=== PATIENT | female | born 2005 | race Caucasian/White ===

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

== ENCOUNTER 2025-01-12 00:11 | Outpatient (CLI) | payer MEDICAID, SELFPAY ==
--- NOTE | 2025-01-12 07:30 | DI.US_ITS ---
Exam(s) US OB 2-3 TRIMESTER EXAM: US OB 2-3 TRIMESTER CLINICAL HISTORY: 19 WK SURVEY,Z34.90. TECHNIQUE: Transabdominal obstetrical ultrasound performed. COMPARISON: US POCUS EXAM from 11/02/2024 FINDINGS: Number of fetuses: 1 position: CEPHALIC heart rate: 155bpm Placental location: There is a grade 1 fundal placenta. The placental tip is 4.5 cm from the interna l os. No evidence of previa. Amniotic fluid index: Amount of fluid is within normal limits. ANATOMICAL SURVEY: Within normal limits. BIOMETRIC DATA: BPD: 3.87cm, 17weeks 5days HC: 15.13cm, 18weeks 1day AC: 12.11cm, 17weeks 6days FL: 2.57cm, 17weeks 6days Cisterna magna: 4.1mm Cerebellum: 1.7cm Lateral ventricle: 0.6 cm EFW: 211.61g, 0.47lb, 26.9% Composite Age: 17weeks 6days ARNULFO: 06/16/2025 Heart Rate: 155bpm ANATOMICAL SURVEY: Four-chambered heart: Unremarkable. RVOT: Unremarkable. LVOT: Unremarkable. Left-sided stomach: Unremarkable. urinary bladder: Unremarkable. Bilateral kidneys: Unremarkable. Three-vessel cord: Unremarkable. Cord insertion: Unremarkable. Posterior fossa: Unremarkable. ventricles: Unremarkable. nose/lips: Unremarkable. Palate: Unremarkable. spine: Unremarkable. Two arms and two legs: Unremarkable. IMPRESSION: 1. Single live intrauterine gestation as above. 2. Normal anatomic survey. DATA REPOSITORY:
== END 2025-01-12 00:31 ==
LOC: DI 00:11
PROVIDERS: PCP Nurse Practitioner Family; Visit Provider Advanced Practice Midwife
DX: Z34.91 Encounter for supervision of normal pregnancy, unspecified, first trimester (principal); Z3A.19 19 weeks gestation of pregnancy
CPT/HCPCS: 76805

== ENCOUNTER 2025-01-30 00:45 | Outpatient (CLI) | payer MEDICAID, SELFPAY ==
--- NOTE | 2025-01-30 14:30 | DI.US_ITS ---
APPROVED REPORT EXAM: Comprehensive 2D, Doppler, and color-flow Echocardiogram Patient Location: Out-Patient Instrument Fitter: George Hoover RDCS (AE) Indications: Heart murmur during Other Information Study Quality: Excellent Conclusion Normal left ventricular wall thickness and chamber size. Ejection fraction is 65%. Wall motion is n ormal Normal right ventricular size and function Both atria are normal in size There is no structural or hemodynamically significant valvular disease Estimated right ventricular systolic pressure is 30 mmHg Wall motion Left Ventricle The left ventricle is normal size. Left ventricular systolic function is normal. The left ventricular ejection fraction is within the normal range. There is normal left ventricular wall thickness. There is normal LV segmental wall motion. The left ventricular diastolic function is normal. There is no v entricular septal defect visualized. LVEF is 65%. Right Ventricle The right ventricle is normal size. The right ventricular systolic function is normal. Atria The left atrium size is normal. The right atrium size is normal. The interatrial septum is intact wit h no evidence for an atrial septal defect. Aortic Valve The aortic valve is normal in structure. Aortic valve is trileaflet. There is no aortic valvular sten osis. No aortic regurgitation is present. Mitral Valve The mitral valve is normal in structure. No evidence of mitral valve stenosis. Trace mitral regurgita tion. Tricuspid Valve The tricuspid valve is normal in structure. There is no tricuspid valve stenosis. Trace tricuspid reg urgitation. The RVSP is 30 mmHg. Pulmonic Valve The pulmonary valve is normal in structure. There is no pulmonic valvular stenosis. There is no pulmo tayo valvular regurgitation. Great Vessels The aortic root is normal in size. The ascending aorta is normal in size. Aortic arch is normal in ca liber. IVC is normal in size and collapses >50% with inspiration. Pericardium There is no pericardial effusion. 2D Dimensions IVSD d PLAX 0.83 cm F: 0.6-1.0 Ao Root d 2.29 cm F: 2.7 - 3.3 LVPW d PLAX 0.85 cm F: 0.6 - 1.0 Ao Asc Diam d 2.33 cm F: 2.3 - 3.1 LVID d PLAX 4.81 cm F: 3.8 - 5.2 LVDs 3.01 cm F: 2.2 - 3.5 LV EF Teichholz 67.5 % FS 37.51 % LV EDV (Teich) 108.0 mL LV ESV (Teich) 35.1 mL Stroke Vol Index (Teich) 43.36 M-Mode TAPSE 2.72 cm (M/F) >1.7 Auto EF LV EDV A4C 106.8 mL LV EDV A2C 135.5 mL LV EDV BP 120.7 mL LV ESV A4C 39.0 mL LV ESV A2C 41.4 mL LV ESV BP 40.4 mL LVEF(%) A4C 63.5 % LVEF(%) A2C 69.5 % LVEF(%) BP 66.6 % LV SV A4C 67.9 ml LV SV A2C 94.2 ml LV SV BP 80.4 ml LV CO A4C 5.8 L/min LV CO A2C 7.1 L/min LV CO BP 6.5 L/min HR A4C 85.92 BPM HR A2C 75.16 BPM LV EDV Index (BP) LA Volume LA Length A4C 4.0 cm LA Length A2C 3.6 cm LA Area A4C s 8.28 cm2 LA Area A2C s 8.67 cm2 LA Vol A4C A-L 14.68 mL LA Vol A2C A-L 17.54 mL LA Vol Biplane A-L 16.7 mL LA Vol/BSA A4C A-L LA Vol/BSA A2C A-L LA Vol/BSA BP A-L 10.0 mL/m2 LA Vol A4C MOD 13.3 mL LA Vol A2C MOD 16.6 mL LA Vol BP MOD 15.4 mL RA Volume RA Area A4C 6.9 cm2 RA ESV A4C (A-L) 13.3mL RA Vol/BSA A4C A-L RA Length A4C 3.0 cm RA ESV A4C (MOD) 13.2mL LV Diastology MV E' medial 0.154 (>0.07 m/s) MV E Vmax 1.07 (0.4-1.3 m/s) MV E/E' MED 6.92 (<14) MV A Vmax 0.75 (0.4-1.3 m/s) MV E' lateral 0.204 (>0.1 m/s) E/A Ratio 1.4 MV E/E' LAT 5.24 (<14) MV E' Average 0.179 m/s MV E/E'(average) 5.96 Aortic Valve AoV Vmax 1.93 m/s LVOT Vmax 1.54 m/s AoV Peak Grad 15.0 mmHg LVOT Peak Grad 9.5 mmHg AoV Area (Vmax) 1.65 cm2 LVOT VTI 0.274 m AoV VTI 0.349 m LVOT Mean Grad 5.0 mmHg AoV Mean David. 1.36 m/s LVOT SV 56.75 mL AoV Mean Grad 8.5 mmHg LVOT Diam s 1.60 cm AoV Area (VTI) 1.62 cm2 AV Regurg Peak Gr. 14.97 mmHg Velocity Ratio 0.80 Mitral Valve MV DT 180 (160-240 msec) Pulmonary Valve PV Vmax 1.26 (0.5-1.5 m/s) RVOT Vmax 0.98 m/s PV Peak Grad 6.4 mmHg RVOT Peak Gr. 3.8 mmHg PV Mean David 0.93 m/s RVOT VTI 0.192 m PV Mean Grad 3.8 mmHg RVOT Mean Gr. 2.2 mmHg Tricuspid Valve RA Pressure 3.00 mmHg TR Vmax 2.60 m/s TV S' 0.17 m/s TR Peak Grad 27.0 mmHg RVSP (TR) 30.0 mmHg
== END 2025-01-30 01:05 ==
PROVIDERS: PCP Nurse Practitioner Family; Visit Provider Advanced Practice Midwife
DX: O26.892 Other specified pregnancy related conditions, second trimester (principal); R01.1 Cardiac murmur, unspecified; Z3A.18 18 weeks gestation of pregnancy
CPT/HCPCS: 93306

== ENCOUNTER 2025-02-08 11:32 | Outpatient (CLI) | payer MEDICAID, SELFPAY ==
--- NOTE | 2025-02-08 11:30 | RT.EKG_ITS ---
APPROVED REPORT Exam: Resting ECG Reason for Exam: baseline for establishment of care Patient Location: O HR:78 bpm ECG Measurements Heart Rate 78 AXIS TX 116 P 10 QRSd 85 QRS 36 QT 349 T -2 QTc 398 Conclusion Sinus rhythm...normal P axis, V-rate 50- 99 Borderline short TX interval...TX int <120mS Borderline T abnormalities, inferior leads...T flat/neg, II III aVF Baseline wander in lead(s) V4
== END 2025-02-08 11:33 | disposition home or self-care (01) ==
LOC: DI.CARD 11:33
PROVIDERS: PCP Nurse Practitioner Family; Visit Provider Internal Medicine Cardiovascular Disease
DX: R01.1 Cardiac murmur, unspecified (principal); O26.899 Other specified pregnancy related conditions, unspecified trimester
CPT/HCPCS: 93010

== ENCOUNTER 2025-02-16 19:51 | Outpatient (CLI) | payer MEDICAID, SELFPAY ==
[2025-02-16 21:08] VITALS: BP 116/71; PULSE 125; RESP 16; TEMP 37.2; O2SAT 96
[2025-02-16 21:13] LABS: Bilirubin Negative (Negative); Blood Trace-intact (Negative); Clarity Cloudy (Clear); Glucose Negative (Negative); Ketones Negative (Negative); Leukocyte Esterase Moderate (Negative); Nitrite Positive (Negative); Urobilinogen 0.2 mg/dL (Up to 0.2)
[2025-02-16 21:26] LABS: Bacteria Moderate HPF (Negative); C & S Indicated? No/Sq. Contamination; Casts Negative LPF (Negative); Crystals Negative HPF (Negative); Epithelial Cells Moderate HPF (Negative); Mucus Negative (Negative); RBC 0-2 HPF (0-2); WBC >50 HPF (0-5)
--- NOTE | 2025-02-16 22:04 | PGE_ITS ---
Date of Service Date of service: 02/16/25 Time of Service: 22:05 Assessment and Plan Assessment and plan (1) Urinary tract infection: Status: Acute Assessment and plan: Macrobid 100 mg administered and pyridium for treatment. Macrobid 100 mg BID escribed to her pharmacy. Will consider IV treatment if symptoms persist. I will call Aiyana in the morning to see if she has seen an improvement in her symptoms or if fever occurs. Rest and fluids recommended. Note written to stay home from work tomorrow. (2) Right flank pain: Status: Acute Assessment and plan: will consider renal US Monday 02/19 if symptoms persist. Subjective Subjective Patient reports: voiding w/o difficulty and vomiting (earlier today) Interval history since last seen: Aiyana called this evening and reported right flank pain which worsened through the day today accompanied by chills. She has been taking Tylenol for pain with fair to moderate effect. She denies burning or urgency with urination. Urinalysis obtained upon arrival at the Center was pos for nitrites and trace blood with mod leukocytes and mod bacteria. Urine culture was ordered. specific gravity 1.020. Aiyana was treated early in her with macrobid for UTI. Test of cure was not obtained previously. Objective Last Vital Signs Temp 99.0 F 02/16/25 21:08 Pulse 125 H 02/16/25 21:08 Resp 16 02/16/25 21:08 BP 116/71 02/16/25 21:08 Pulse Ox 96 02/16/25 21:08 Laboratory Results - last 24 hr 02/16/25 20:59 Urine Color Yellow Urine Clarity Cloudy Urine pH 6.0 Ur Specific [place] 1.020 Urine Protein 30 H Urine Ketones Negative Urine Blood Trace-intact H Urine Nitrite Positive H Urine Bilirubin Negative Urine Urobilinogen 0.2 Ur Leukocyte Esterase Moderate H Urine RBC 0-2 Urine WBC >50 H Ur Epithelial Cells Moderate Urine Crystals Negative Urine Bacteria Moderate Urine Casts Negative Urine Mucus Negative Ur Culture Indicated? No/Sq. Contamination Urine Glucose Negative Reviewed Pertinent PMH: Yes Objective Narrative Objective Narrative: WBC 13.74. Signs of mild discomfort observed by Jazmin SAMPSON Time Spent with Patient Time Spent with Patient: <25 minutes Time was spent: obtaining and/or reviewing separately otained hiistory, ordering medications,tests, procedures, referring, communicating with other health farm or ranch animal caretaker and indepentently interpreting results
[2025-02-16] MEDS: MacroBID 100 MG CAP PO (22:10)
[2025-02-16] MEDS: Phenazopyridine 200 MG TAB PO (22:10)
[2025-02-16 22:12] LABS: Abs Immature Grans 0.08 10^3/uL (0.0-0.06); Absolute Basophil Count 0.04 10^3/uL (0.0-0.2); Absolute Lymphocyte Count 0.44 10^3/uL (1.2-3.4); Basophils % 0.3 %; HCT 31.3 % (36.0-46.0); HGB 10.7 g/dL (11.2-15.7); Immature Grans % 0.6 %; Lymphocytes % 3.2 %; MCH 31.6 pg (27.0-33.0); MCHC 34.2 % (32.0-36.0); MCV 92 fL (80-95); MPV 9.6 fL (8.0-11.0); Monocytes % 7.4 %; Neutrophils % 88.5 %; Platelet Count 321 10^3/uL (130-400); RBC 3.39 10^6/uL (3.93-5.22); RDW 12.6 % (11.7-14.6); RDW-SD 42.4 fL; WBC 13.74 10^3/uL (4.4-10.8)
[2025-02-16 22:13] LABS: Absolute Monocyte Count 1.02 10^3/uL (0.1-0.8); Absolute Neutrophil Count 12.16 10^3/uL (1.2-6.7)
== END 2025-02-16 22:17 ==
LOC: BCD 19:51 → OBS 20:59
PROVIDERS: PCP Nurse Practitioner Family; Visit Provider Advanced Practice Midwife
DX: N39.0 Urinary tract infection, site not specified (principal); R10.9 Unspecified abdominal pain; B96.29 Other Escherichia coli [E. coli] as the cause of diseases classified elsewhere
CPT/HCPCS: 87077; 81003; 81015; 85025; 87086; 87186

== ENCOUNTER 2025-02-17 21:11 | Observation (INO) | payer MEDICAID, SELFPAY ==
[2025-02-17] VITALS (14 sets, daily range): BP systolic 115–117; BP diastolic 61–62; PULSE 105–136; RESP 16; TEMP 36.7–37.6; O2SAT 99–100
--- NOTE | 2025-02-17 21:48 | HPE_ITS ---
Date of service: 02/17/25 Time of Service: 21:48 Assessment and Plan Assessment and plan (1) Right flank pain: Status: Acute Assessment and plan: Comfort measures including fan and heat or Ice to right flank PRN. Tylenol PRN. Will continue to assess. (2) Pyelonephritis affecting : Status: Acute Assessment and plan: Admitted to the Center for observation and IV antibiotic therapy. Aiyana reports rash as a child after taking amoxicillin. Her father is present with her and confirms that she had a full body rash which was called penicillin measles. Will treat with ceftriaxone 1 gm IV Q 24 hours. CBC, CMP drawn stat. Consult with Dr Swanson by phone re: patient's status and treatment plan. Lactate drawn per her recommendation. (3) History of febrile urinary tract infection: Status: Acute Assessment and plan: Tylenol PRN OB-HPI Labor/Delivery History of Present Illness Reason for Visit: OBSERVATION Chief Complaint: Other (pyelonephritis). ARNULFO Calculator Estimated Delivery Date Method Current WG Current Estimate 06/14/25 Ultrasound #1 23w 2d Other Estimates 06/05/25 LMP (Certain) 24w 4d Comments: Suzy was treated last night at the center for UTI with Macrobid. She has taken 3 doses of Macrobid 100 mg. Her symptoms improved this morning when I spoke to her on the phone but she called this evening when she developed flank pain and reported that she was 'burning up. She last took tylenol this morning. She is admitted for observation and IV antibiotic therapy. History of Present Expected Delivery Route/Plan - CNM FOB/boyfriend - Wilfred Sellers, age 58 (has a 30 yo daughter who has 2 kids age 13 & 8) Will want epidural (maybe early) Plans formula feeding after initial colostrum Specific Issues/Plan 1. 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 partner neg CF carrier 2. Hx heart murmur, heard at initial OB, Echo 01/30 WNL, Cardiology Consult 02/08__ 3. 5P screen+: vaping & MJ use, initial UDS +THC. Stopped MJ use (12/13/2024). 28 wk UDS ___, POSC ___ 4. 1st tri asymptomatic UTI, 11/17/24, tmt w. Macrobid. RAFIQ NV 4a. UTI Recurrence - treated with Macrobid x 14 days, TOC____ 4b. admitted to the center for pyelonephritis 02/17 5. Hx of insomnia trx with melatonin. 6. Chronic low back pain - referral to PT. 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 Will try home stretches and strength building exercises Insomnia (Acute) uses melatonin shift changes for work (works days and nights) Healthy adolescent (Acute) Medical History Anxiety Filled out on patient registration form, anxiety Urinary tract infection History filled out on patient registration form, UTI or kidney problems Family History Mother Age: 43 Asthma Alcohol abuse Depression Anxiety Sister Age: 18 No problems noted. Paternal Grandfather Hypertension Grandparent unknown side or gender history of hypertension Diabetes Grandparent unknown side or gender history of diabetes Heart disease Grandparent unknown side or gender history of heart disease. Alcohol abuse Social History Smoking/Tobacco Use Status: Never Second Hand Exposure: No Smoking risk assessment performed?: Yes Drug use: Occasionally Substance use type: marijuana Household members: family Education Level: other Details: Gap year , undecided for after that Pets and animals: Yes (2 cats) Pets and animals: cat(s) Seatbelt use: always Female Reproductive History Menstrual control method: none History History 2 1 Para 0 Hx # Term Pregnancies 0 Multiple births 0 Hx # Pregnancies 0 Ectopic pregnancies 0 AB induced 0 Hx Number of Living Children 0 AB spontaneous 0 Meds Allergies and Home Medications Allergies Allergy/AdvReac Type Severity Reaction Status Date / Time amoxicillin Allergy Hives Verified 02/09/25 14:24 Home Medications ?Medication ?Instructions ?Recorded ?Confirmed ?Type melatonin 5 mg tablet 5 mg PO HS PRN 11/14/19 02/09/25 History vits,calcium no.78-iron 1 tab PO DAILY #90 tabs 10/16/24 02/09/25 Rx fumarate-folic acid 29 mg-1 mg tablet cholecalciferol (vitamin D3) 50 50 mcg PO DAILY #90 caps 12/13/24 02/09/25 Rx mcg (2,000 unit) capsule nitrofurantoin 100 mg PO BID #13 caps 02/16/25 Rx monohydrate/macrocrystals 100 mg capsule (Macrobid) Exam Physical Exam Vital signs: Temp Pulse BP Pulse Ox 99.7 F H 134 H 115/62 99 02/17/25 21:38 02/17/25 21:41 02/17/25 21:40 02/17/25 21:41 Vital Signs Reviewed: Yes Notable Details: preliminary urine cullture shows gram neg rods. Constitutional Constitutional: no acute distress and cooperative Detailed Labor and Delivery Exam Vaca Score: Cervical Points Exam 0 1 2 3 Dilation Closed 1-2cm 3-4 cm 5-6cm Effacement 0-30% 40-50% 60-70% 80% Consistency Firm Medium Soft Station -3 -2 -1,0 +1,+2 Position Posterior Mid Anterior Monitor Mode: External Contraction Frequency(min): none Fetus A Heart Rate Baseline: 160 Monitor Accelerations: 10 X 10 Monitor Decelerations: None Categories: Category I HEENT Exam HEENT Exam: Normal Respiratory Exam Respiratory Exam: Normal Cardiovascular Exam Cardiovascular Exam: Normal Abdominal Exam Abdominal Exam: Abnormal (right flank pain pos. CVAT) Exam Exam: Not Done Extremities Exam Extremities Exam: Normal Skin Exam Skin Exam: Normal Psychiatric Exam Psychiatric Exam: Normal Risk Assessment Risk for Shoulder Dystocia Historical/Initial OB: NEGATIVE FOR: Pelvic Abnormality, Pre- BMI>30, Previous Shoulder Dystocia or Previous Macrosomia Risk for Pre-Eclampsia Daily Dose ASA Indicated: No Date Initiated/Initials: not indicated. JK Yes, if one or more: NEGATIVE FOR: Hx Pre-E/Gest HTN, Chronic HTN, Multiple Gestation, Pre-gestational DM, Renal Disease, Systemic Lupus or APA Syndrome Yes, if 2 or more: POSITIVE FOR: Nulliparity; NEGATIVE FOR: Age>= 35 yrs, >10yr btwn pregnancies, BMI>30, ethinicty, Mother/Sister w/ Pre-E or Previous IUGR Risk for Post- Hemorrhage Initial: NEGATIVE FOR: Multiple Gestation, Previous PPH, Known Clotting Deficiency, Grand Multiparity or Anticoagulation Risks Reviewed Risks Reviewed Upon Admission: Yes
[2025-02-17 22:04] LABS: Abs Immature Grans 0.11 10^3/uL (0.0-0.06); HCT 30.4 % (36.0-46.0); HGB 10.4 g/dL (11.2-15.7); Lactate 1.6 mmol/L (<or=2.0); MCH 31.8 pg (27.0-33.0); MCHC 34.2 % (32.0-36.0); MCV 93 fL (80-95); MPV 9.6 fL (8.0-11.0); Platelet Count 348 10^3/uL (130-400); RBC 3.27 10^6/uL (3.93-5.22); RDW 12.6 % (11.7-14.6); RDW-SD 43.3 fL; WBC 18.43 10^3/uL (4.4-10.8)
[2025-02-17] MEDS: Lactated Ringers 1,000 ML 125 ML IV (22:09)
[2025-02-17] MEDS: cefTRIAXone 1 GM/50 ML BAG IVPB (22:11)
[2025-02-17] MEDS: Acetaminophen 500 MG TAB 1000 MG PO (22:11)
[2025-02-17 22:16] LABS: Absolute Eosinophil Count 0.18 10^3/uL (0.0-0.7); Absolute Lymphocyte Count 0.37 10^3/uL (1.2-3.4); Absolute Monocyte Count 1.29 10^3/uL (0.1-0.8); Absolute Neutrophil Count 16.59 10^3/uL (1.2-6.7); Diff Comment Manual Differential; RBC Morphology Normal
[2025-02-17 22:22] LABS: ALT 16 U/L (14-59); AST 15 U/L (15-37); Albumin 2.6 g/dL (3.4-5.0); Alkaline Phosphatase 82 U/L (46-116); Anion Gap 14.3 mmol/L (3-11); BUN 5 mg/dL (7-18); Bilirubin, Total 0.4 mg/dL (0.2-1.0); CO2 20.7 mmol/L (21.0-32.0); CREATININE 0.7 mg/dL (0.55-1.02); Calcium 8.8 mg/dL (8.5-10.1); Chloride 102 mmol/L (98-107); Estimated GFR 127.69 (mL/min/1.73m2); Glucose 181 mg/dL (74-106); Sodium 137 mmol/L (136-145); Total Protein 6.5 g/dL (6.4-8.2)
[2025-02-17 22:32] LABS: Potassium 2.7 mmol/L (3.5-5.1)
[2025-02-17] MEDS: Lactated Ringers 500 ML IV (22:50)
[2025-02-17] MEDS: Normal Saline Flush 10 ML SYR IVP (23:11)
[2025-02-18] VITALS (22 sets, daily range): BP systolic 86–112; BP diastolic 41–66; PULSE 86–120; RESP 16–32; TEMP 36.4–37.9; O2SAT 91–100
[2025-02-18] MEDS: Acetaminophen 500 MG TAB 1000 MG PO ×3 (03:53→16:08)
[2025-02-18] MEDS: Lactated Ringers 1,000 ML 125 ML IV (03:54)
[2025-02-18 04:13] LABS: Lactate 0.8 mmol/L (<or=2.0)
[2025-02-18 04:34] LABS: ALT 15 U/L (14-59); AST 14 U/L (15-37); Albumin 2.5 g/dL (3.4-5.0); Alkaline Phosphatase 81 U/L (46-116); Anion Gap 9.9 mmol/L (3-11); BUN 4 mg/dL (7-18); Bilirubin, Total 0.4 mg/dL (0.2-1.0); CO2 26.1 mmol/L (21.0-32.0); CREATININE 0.6 mg/dL (0.55-1.02); Calcium 8.8 mg/dL (8.5-10.1); Chloride 104 mmol/L (98-107); Estimated GFR 132.52 (mL/min/1.73m2); Glucose 95 mg/dL (74-106); Sodium 140 mmol/L (136-145); Total Protein 6.4 g/dL (6.4-8.2)
[2025-02-18 04:48] LABS: Potassium 3.8 mmol/L (3.5-5.1)
--- NOTE | 2025-02-18 14:36 | PGE_ITS ---
Date of Service Date of service: 02/18/25 Time of Service: 14:36 Assessment and Plan Assessment and plan (1) Pyelonephritis affecting : Status: Acute Assessment and plan: Will continue IV antibiotics with rocephin 1 gm Q 24 hours IV. Saline lock. PO fluids encouraged. (2) Right flank pain: Status: Acute Assessment and plan: comfort measures. renal US ordered in the morning. Plan reviewed by telephone with Dr Swanson who agrees. Subjective Subjective Patient reports: no new complaints Interval history since last seen: Suzy feels well. She denies chills or fever symptoms. She reports that right flank pain persists and is 6/10 on pain scale. Exam Resp Effort & Inspection: normal respiratory effort Auscultation: clear to auscultation bilaterally Cardio Rate: regular rate Rhythm: regular rhythm Heart Sounds: murmur (Gr II/) systolic General: CVA tenderness on the right Psych Appearance: grossly normal Speech and Movement: speech and movement normal Mood: congruent mood Objective Last Vital Signs Temp 98.1 F 02/18/25 08:35 Pulse 95 H 02/18/25 11:55 Resp 16 02/18/25 08:35 BP 112/59 L 02/18/25 11:55 Pulse Ox 94 02/18/25 08:35 Laboratory Results - last 24 hr 02/17/25 02/18/25 21:56 04:05 WBC 18.43 H RBC 3.27 L Hgb 10.4 L Hct 30.4 L MCV 93 MCH 31.8 MCHC 34.2 RDW 12.6 Plt Count 348 MPV 9.6 Immature Gran % 0.0 Neutrophils % 90.0 Lymphocytes % 2.0 Monocytes % 7.0 Eosinophils % 1.0 Basophils % 0.0 Nucleated RBC % 0.0 Absolute Neutrophils 16.59 H Absolute Lymphocytes 0.37 L Absolute Monocytes 1.29 H Absolute Eosinophils 0.18 Absolute Basophils 0.00 RBC Morphology Normal VBG Lactate 1.6 0.8 Sodium 137 140 Potassium 2.7 L* 3.8 D Chloride 102 104 Carbon Dioxide 20.7 L 26.1 Anion Gap 14.3 H 9.9 BUN 5 L 4 L Creatinine 0.7 0.6 Est GFR (CKD-EPI 2020) 127.69 132.52 Glucose 181 H 95 Calcium 8.8 8.8 Total Bilirubin 0.4 0.4 AST 15 14 L ALT 16 15 Alkaline Phosphatase 82 81 Total Protein 6.5 6.4 Albumin 2.6 L 2.5 L Time Spent with Patient Time Spent with Patient: 25-34 minutes Time was spent: preparing to see the patient(eg.review tests), obtaining and/or reviewing separately otained hiistory, ordering medications,tests, procedures, referring, communicating with other health customer care professional, indepentently interpreting results, counseling the patient and care coordination
[2025-02-18 16:50] LABS: Lactate 0.8 mmol/L (<or=2.0)
[2025-02-18 16:52] LABS: Abs Immature Grans 0.08 10^3/uL (0.0-0.06); Absolute Basophil Count 0.04 10^3/uL (0.0-0.2); Absolute Eosinophil Count 0.01 10^3/uL (0.0-0.7); Absolute Lymphocyte Count 0.63 10^3/uL (1.2-3.4); Absolute Monocyte Count 0.99 10^3/uL (0.1-0.8); Basophils % 0.3 %; Eosinophils % 0.1 %; HCT 29.8 % (36.0-46.0); HGB 10.1 g/dL (11.2-15.7); Immature Grans % 0.6 %; Lymphocytes % 5.1 %; MCH 31.8 pg (27.0-33.0); MCHC 33.9 % (32.0-36.0); MCV 94 fL (80-95); MPV 9.8 fL (8.0-11.0); Neutrophils % 85.9 %; Platelet Count 312 10^3/uL (130-400); RBC 3.18 10^6/uL (3.93-5.22); RDW 12.6 % (11.7-14.6); RDW-SD 43.5 fL; WBC 12.33 10^3/uL (4.4-10.8)
[2025-02-18 16:53] LABS: Absolute Neutrophil Count 10.59 10^3/uL (1.2-6.7)
[2025-02-18 17:08] LABS: ALT 14 U/L (14-59); AST 14 U/L (15-37); Albumin 2.3 g/dL (3.4-5.0); Alkaline Phosphatase 81 U/L (46-116); Anion Gap 11.1 mmol/L (3-11); BUN 5 mg/dL (7-18); Bilirubin, Total 0.4 mg/dL (0.2-1.0); CO2 22.9 mmol/L (21.0-32.0); CREATININE 0.6 mg/dL (0.55-1.02); Calcium 8.7 mg/dL (8.5-10.1); Chloride 105 mmol/L (98-107); Estimated GFR 132.52 (mL/min/1.73m2); Glucose 105 mg/dL (74-106); Potassium 3.4 mmol/L (3.5-5.1); Sodium 139 mmol/L (136-145); Total Protein 5.9 g/dL (6.4-8.2)
[2025-02-18] MEDS: cefTRIAXone 1 GM/50 ML BAG IVPB (22:06)
[2025-02-19] VITALS (9 sets, daily range): BP systolic 103–117; BP diastolic 59–75; PULSE 93–106; RESP 16–20; TEMP 36.5–37.6; O2SAT 98–100
--- NOTE | 2025-02-19 | DI.US_ITS ---
Exam(s) US RENAL EXAM: US RENAL CLINICAL HISTORY: right flank pain, pyelonephritis, 23 weeks gest. TECHNIQUE: Beck scale, color and spectral Doppler were used. COMPARISON: No exams were available for comparison FINDINGS: Renal size in cm: Right: 12.5. Left: 12.4. Echogenicity: Normal. Hydronephrosis: No. Cyst or mass: No. Nephrolithiasis: No. Other findings: Note is made of an intrauterine gestation. The was not evaluated on this e xamination. Bladder:Normal. Ureteral jets: Right: Visualized and unremarkable. Left: Visualized and unremarkable. Prevoid vol:217 cc Postvoid vol:0 cc Renal color flow: Symmetric and within normal limits. IMPRESSION: Unremarkable examination. No evidence of hydronephrosis or nephrolithiasis. DATA REPOSITORY:
[2025-02-19] MEDS: Acetaminophen 500 MG TAB 1000 MG PO (06:06)
[2025-02-19] MEDS: Normal Saline Flush 10 ML SYR IVP ×3 (10:19→21:55)
--- NOTE | 2025-02-19 12:19 | PGE_ITS ---
Date of Service Date of service: 02/19/25 Time of Service: 12:19 Assessment and Plan Assessment and plan (1) Pyelonephritis affecting : Status: Acute Assessment and plan: A: HD#3, pylonephritis caused by e-coli @ 23 wks gestation Has completed 2 doses of Rochephin IV Afrebile since 399 today, remains mildy symptomatic Consult with Dr. Swanson completed; renal ultrasound done today is WNL, benign findings P: Will plan overnight stay for 3rd ATB dose Plan discharge to home on oral agent after 24 hrs afebrile Repeat CBC in the morning; FHT check with vital signs Complete 14 days total of ATB therapy then consider qd prophylaxis for remainder of Pt verbalizes understanding and compliance with plan of care Subjective Subjective Interval history since last seen: Pt reports a dull achiness and soreness on right flank and mid back, otherwise is feeling some better than yesterday. No nausea. Exam Const General: cooperative, healthy appearing, comfortable, no acute distress and well developed Nutritional Appearance: average body habitus and well nourished Orientation: alert, awake and oriented x3 Resp Effort & Inspection: normal respiratory effort and able to speak in complete sentences Cardio Rate: regular rate Rhythm: regular rhythm Back/Spine/Pelvis Back: CVA tenderness (mild, on right side) Skin General skin exam: no rashes or lesions noted and elasticity normal Extrem General: normal to inspection, full ROM and normal gait Psych Mood: congruent mood Affect: normal affect Attitude: cooperative Thought Process: normal Objective Last Vital Signs Temp 97.9 F 02/19/25 10:00 Pulse 100 H 02/19/25 10:00 Resp 18 02/19/25 10:00 BP 103/66 02/19/25 10:00 Pulse Ox 98 02/19/25 10:00 Laboratory Results - last 24 hr 02/18/25 16:40 WBC 12.33 H RBC 3.18 L Hgb 10.1 L Hct 29.8 L MCV 94 MCH 31.8 MCHC 33.9 RDW 12.6 Plt Count 312 MPV 9.8 Immature Gran % 0.6 Neutrophils % 85.9 Lymphocytes % 5.1 Monocytes % 8.0 Eosinophils % 0.1 Basophils % 0.3 Nucleated RBC % 0.0 Absolute Neutrophils 10.59 H Absolute Lymphocytes 0.63 L Absolute Monocytes 0.99 H Absolute Eosinophils 0.01 Absolute Basophils 0.04 VBG Lactate 0.8 Sodium 139 Potassium 3.4 L Chloride 105 Carbon Dioxide 22.9 Anion Gap 11.1 H BUN 5 L Creatinine 0.6 Est GFR (CKD-EPI 2020) 132.52 Glucose 105 Calcium 8.7 Total Bilirubin 0.4 AST 14 L ALT 14 Alkaline Phosphatase 81 Total Protein 5.9 L Albumin 2.3 L Time Spent with Patient Time Spent with Patient: 25-34 minutes Time was spent: preparing to see the patient(eg.review tests), obtaining and/or reviewing separately otained hiistory, ordering medications,tests, procedures, referring, communicating with other health rental boats caretaker and counseling the patient
[2025-02-19] MEDS: cefTRIAXone 1 GM/50 ML BAG IVPB (21:56)
[2025-02-20 02:55] VITALS: BP 104/49; PULSE 98; RESP 18; TEMP 37.1
[2025-02-20 05:12] LABS: HCT 28.3 % (36.0-46.0); HGB 9.5 g/dL (11.2-15.7); MCH 31.1 pg (27.0-33.0); MCHC 33.6 % (32.0-36.0); MCV 93 fL (80-95); MPV 9.6 fL (8.0-11.0); Platelet Count 324 10^3/uL (130-400); RBC 3.05 10^6/uL (3.93-5.22); RDW 12.4 % (11.7-14.6); RDW-SD 42.3 fL; WBC 7.98 10^3/uL (4.4-10.8)
[2025-02-20] MEDS: Acetaminophen 500 MG TAB 1000 MG PO (06:35)
[2025-02-20 06:39] VITALS: BP 98/50; PULSE 91; RESP 18; TEMP 36.4
[2025-02-20] MEDS: Cephalexin 500 MG CAP PO (09:01)
[2025-02-20 09:07] VITALS: BP 98/57; PULSE 95; RESP 12; TEMP 36.1
--- NOTE | 2025-02-20 09:58 | DSE_ITS ---
Date of service: 02/20/25 Time of Service: 09:58 DS: Diagnosis Discharge Diagnosis (1) Pyelonephritis affecting : Status: Acute Asessment and Plan: A: Afebrile and vital signs stable, flank pain improving Trial of Keflex successful without evidence of urticaria P: Discharge to home FU at [facility] Wednesday02/23/25 at 11:20 am Continue on prescribed Keflex 500mg TID x 11 then daily for remainder of Repeat Urine Culture on 03/05/25 Discharge Plan Disposition Patient Disposition: Home Condition: Improving Discharge Details Reason For Visit: Pyelonephritis Admit Date/Time: 02/17/25 21:11 Admit Provider: Rossy Medina Attending Provider: Rossy Medina Primary Care Provider: Jyoti Silva Home Meds and New Rx's Prescriptions: No Action melatonin 5 mg tablet 5 mg PO HS PRN vit,[id number] 29-1 mg tablet 1 tab PO DAILY Qty: 90 4RF cholecalciferol (vitamin D3) 50 mcg (2,000 unit) capsule 50 mcg PO DAILY Qty: 90 4RF nitrofurantoin monohyd/m-cryst [Macrobid] 100 mg capsule 100 mg PO BID Qty: 13 0RF Rx Instructions: must administer with a meal/food cephalexin 500 mg tablet 500 mg PO TID Qty: 60 5RF Rx Instructions: Take 1 tab every 8 hours for the next 11 days, then take one daily for remainder of ferrous gluconate 256 mg (28 mg iron) tablet 256 mg PO .every other day 60 Days Qty: 60 3RF Discharge Instructions Activity:: Activity as Tolerated Equipment/Supplies:: No Equipment Needed Diet:: Normal Diet Discharge Orders Discharge Orders: Discharge Order (Routine); Ordered 02/20/25 Ordered By: Candace Carrillo OB:DS Summary Contraception Discussed Contraception Discussed: No, Status at Discharge Functional status at discharge: independent ambulation Overall status at discharge: patient is progressing back to baseline Mental Status: mental status grossly normal Speech and Movement: speech and movement normal Mood: congruent mood Affect: normal affect Quality:SDOH Health Related Social Needs: No Data to Display Exam Physical Exam Vital signs: Temp Pulse Resp BP Pulse Ox 97.0 F L 95 H 12 98/57 L 99 02/20/25 09:07 02/20/25 09:07 02/20/25 09:07 02/20/25 09:07 02/19/25 17:44 Constitutional Constitutional: no acute distress and cooperative HEENT Exam HEENT Exam: Normal Respiratory Exam Respiratory Exam: Normal Cardiovascular Exam Cardiovascular Exam: Normal Back/Spine/Pelvis Exam Back Exam: Abnormal (CVA tenderness right side) Skin Exam Skin Exam: Normal Psychiatric Exam Psychiatric Exam: Normal PFSH All Active Problems (Updated 02/19/25 @ 13:18 by Jyoti Hill) History of febrile urinary tract infection (Acute) Pyelonephritis affecting (Acute) Right flank pain (Acute) 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 Will try home stretches and strength building exercises Insomnia (Acute) uses melatonin shift changes for work (works days and nights) Medical History (Updated 02/19/25 @ 13:18 by Jyoti Hill) Healthy adolescent Urinary tract infection Low back pain Urinary tract infection during in first trimester E.Coli - treated with Macrobid Anxiety Filled out on patient registration form, anxiety Family History Mother Age: 43 Asthma Alcohol abuse Depression Anxiety Sister Age: 18 No problems noted. Paternal Grandfather Hypertension Grandparent unknown side or gender history of hypertension Diabetes Grandparent unknown side or gender history of diabetes Heart disease Grandparent unknown side or gender history of heart disease. Alcohol abuse Social History Smoking/Tobacco Use Status: Never Second Hand Exposure: No Smoking risk assessment performed?: Yes Drug use: Occasionally Substance use type: marijuana Household members: family Education Level: other Details: Gap year , undecided for after that Pets and animals: Yes (2 cats) Pets and animals: cat(s) Seatbelt use: always Female Reproductive History Menstrual control method: none History History 1 Para 0 Hx # Term Pregnancies 0 Multiple births 0 Hx # Pregnancies 0 Ectopic pregnancies 0 AB induced 0 Hx Number of Living Children 0 AB spontaneous 0 DS: Data Vitals/I&O Vitals and I&O: Vital Signs Temperature 97.0 F L 02/20/25 09:07 Temperature Source Tympanic 02/18/25 22:01 Temperature Source Tympanic 02/20/25 09:07 Pulse 95 H 02/20/25 09:07 Pulse Rhythm Regular 02/19/25 19:26 Respiratory Rate 12 02/20/25 09:07 Respiratory Depth Normal 02/17/25 21:48 Blood Pressure 98/57 L 02/20/25 09:07 Blood Pressure Mean 70 02/20/25 09:07 Pulse Oximetry 99 02/19/25 17:44 Oxygen Delivery Method Room Air 02/18/25 22:01 Oxygen Flow Rate 0 02/18/25 22:01 Pain Level 3 02/20/25 06:39 Comment Informed Anton SALGUEROM of vitals at this time 02/18/25 16:00 Intake & Output 02/19/25 02/19/25 02/20/25 11:59 23:59 11:59 Intake Total 1810 / 3260 1450 / 3260 Output Total 1350 / 3050 1700 / 3050 1100 / 1100 Balance 460 / 210 -250 / 210 -1100 / -1100 Intake: IV 10 / 10 Oral 1800 / 3250 1450 / 3250 Output: Urine 1350 / 3050 1700 / 3050 1100 / 1100 Other: Urine Color Yellow Pale Yellow Urine Appearance Clear Data Completed and Pending Labs on day of discharge: Labs from last 24 hours 02/20/25 05:04 WBC 7.98 RBC 3.05 L Hgb 9.5 L Hct 28.3 L MCV 93 MCH 31.1 MCHC 33.6 RDW 12.4 Plt Count 324 MPV 9.6
== END 2025-02-20 10:23 | disposition home or self-care (01) ==
PROVIDERS: Advanced Practice Midwife; Admitting Provider Advanced Practice Midwife; PCP Nurse Practitioner Family; Visit Provider Advanced Practice Midwife
DX: O23.02 Infections of kidney in pregnancy, second trimester (principal); O26.892 Other specified pregnancy related conditions, second trimester; Z3A.23 23 weeks gestation of pregnancy; Z14.1 Cystic fibrosis carrier; O99.413 Diseases of the circulatory system complicating pregnancy, third trimester; R01.1 Cardiac murmur, unspecified; O99.352 Diseases of the nervous system complicating pregnancy, second trimester; G47.00 Insomnia, unspecified; M54.50 Low back pain, unspecified; Z87.440 Personal history of urinary (tract) infections
CPT/HCPCS: 36415; 76770; 80053; 85027; 96360; 96361; 96365; 96366; 59025; 83605; 85025; G0378; J0696

== ENCOUNTER 2025-03-05 12:38 | Outpatient (REF) | payer MEDICAID, SELFPAY | END 2025-03-05 12:39 | disposition home or self-care (01) | LOC: LBN 12:38 | PROVIDERS: PCP Nurse Practitioner Family; Visit Provider Advanced Practice Midwife | DX: O23.02 Infections of kidney in pregnancy, second trimester (principal); R82.89 Other abnormal findings on cytological and histological examination of urine | CPT/HCPCS: 87086 ==

== ENCOUNTER 2025-03-29 03:10 | Outpatient (CLI) | payer MEDICAID, SELFPAY ==
[2025-03-29 13:55] LABS: HCT 31.4 % (36.0-46.0); HGB 10.5 g/dL (11.2-15.7); MCH 30.4 pg (27.0-33.0); MCHC 33.4 % (32.0-36.0); MCV 91 fL (80-95); MPV 9.4 fL (8.0-11.0); Platelet Count 404 10^3/uL (130-400); RBC 3.45 10^6/uL (3.93-5.22); RDW 13.1 % (11.7-14.6); RDW-SD 42.9 fL; WBC 8.78 10^3/uL (4.4-10.8)
[2025-03-29 14:08] LABS: Glucose,1 Hr (Glucola) 141 mg/dL (80-140)
== END 2025-03-29 03:11 | disposition home or self-care (01) ==
LOC: LBO 03:10
PROVIDERS: PCP Nurse Practitioner Family; Visit Provider Advanced Practice Midwife
DX: Z34.93 Encounter for supervision of normal pregnancy, unspecified, third trimester (principal)
CPT/HCPCS: 36415; 82950; 85027

== ENCOUNTER 2025-03-29 13:42 | Outpatient (REF) | payer MEDICAID, SELFPAY ==
[2025-03-29 15:57] LABS: *AMPHETAMINES SCREEN URINE Negative (Negative); *BARBITURATES SCREEN URINE Negative (Negative); *BENZODIAZEPINES SCREEN URINE Negative (Negative); Cannabinoids THC Negative (Negative); Cocaine Screen,Urine Negative (Negative); METHADONE URINE SCREEN Negative (Negative); OPIATES URINE SCREEN Negative (Negative); Tricyclic Antidepressants Negative (Negative)
[2025-03-30 11:44] LABS: Fentanyl Scr w/Rfx Confirm Positive ng/mL (<1)
[2025-04-02 12:18] LABS: Fentanyl Confirmation Negative ng/mL (<2); Norfentanyl Confirmation Negative ng/mL (<10)
[2025-04-04 10:23] LABS: Buprenorphine Negative ng/mL (Cutoff: 5.0); Norbuprenorphine Negative ng/mL (Cutoff: 2.5)
== END 2025-03-29 13:43 | disposition home or self-care (01) ==
LOC: LBN 13:42
PROVIDERS: PCP Nurse Practitioner Family; Visit Provider Advanced Practice Midwife
DX: Z34.93 Encounter for supervision of normal pregnancy, unspecified, third trimester (principal)
CPT/HCPCS: 80307; 80348; 80354

== ENCOUNTER 2025-04-06 01:06 | Outpatient (CLI) | payer MEDICAID, SELFPAY ==
[2025-04-06 09:53] LABS: Glucose 1 Hour 220 mg/dL
[2025-04-06 11:43] LABS: Glucose 3 Hour 84 mg/dL
== END 2025-04-06 01:07 | disposition home or self-care (01) ==
LOC: LBO 01:06
PROVIDERS: PCP Nurse Practitioner Family; Visit Provider Advanced Practice Midwife
DX: Z34.93 Encounter for supervision of normal pregnancy, unspecified, third trimester (principal)
CPT/HCPCS: 36415; 82951

== ENCOUNTER 2025-04-26 01:11 | Outpatient (CLI) | payer MEDICAID, SELFPAY ==
--- NOTE | 2025-04-26 17:02 | TELEFU_ITS ---
Date of service: 04/26/25 Time of Service: 16:00 Nutrition Note NOTE: Aiyana comes to referred nutrition visit accompanied by her grandmother. She is 33 weeks gestation and failed recent GTT, resulting in GDM Dx. She brought with her a food log with her daily fasting glucose and 1 hour post prandial glucose. Her fasting glucose numbers between 70-95 pretty consistently but her post prandial glucose fluctuates - mostly below 140 1 hour after eating but noticed a couple instances slightly greater than 140. Her diet per her log is assessed as lower in fiber many days and excessive in added sugar/refined starches often. Pt states pregravid weight of 136. With height of 62 correlates to BMI of 24.8 (pregravid normal weight). weight on 04/19 was 157. estimated energy needs (based on pregravid weight): 1743kcals -> suggested ~2200kcals for 3rd trimester to support rapid growth. Reviewed handout outlining common carb choices from fruits, dairy, grain starches and starchy veggies and that serving sizes are all 15g CHO. Suggest goal of ~220g total carbs/14 servings per day but highlighted that she needs to increase fiber to at least 30g per day and needs to limit added sugars to 22g per day as part of this goal. Reviewed menu planning resources she can enter in goals for macros and share these with her so she can edit according to her preferences, food budget and more. Aiyana not taking vits - says these not tolerated. She is not enrolled in WIC but plans to once baby born. Highlighted: Decrease process food choices/takout/fast food choices. AVOID all SSB's including juice (even 100% juice). increase intake of whole fruit and non- starchy veggies, legumes, nuts/seeds (limit to 1/4 cup per day). Encouraged continued monitoring of glucose and making attempts to eat more real food. Aiyana has my contact info and encouraged to contact (phone/email) with any questions or further need for education. Time Spent in Nutritional Counseling and Treatment: 40 min
== END 2025-04-26 01:12 | disposition home or self-care (01) ==
LOC: DS 01:11
PROVIDERS: PCP Nurse Practitioner Family; Visit Provider Dietitian, Registered
DX: O24.429 Gestational diabetes mellitus in childbirth, unspecified control (principal); Z3A.32 32 weeks gestation of pregnancy
CPT/HCPCS: 00123; 97802

== ENCOUNTER 2025-05-03 01:53 | Outpatient (CLI) | payer MEDICAID, SELFPAY ==
--- NOTE | 2025-05-03 06:30 | DI.US_ITS ---
Exam(s) US OB RACHAEL WEIGHT EXAM: US OB RACHAEL WEIGHT CLINICAL HISTORY: , gestational diabetes.O24.419. TECHNIQUE: Transabdominal obstetrical ultrasound was performed. COMPARISON: Prior ultrasound 01/12/2025. FINDINGS: There is a single viable intrauterine gestation with cardiac activity identified-148 bpm The fetus is presently in cephalic position . Amniotic fluid: There is a normal amount of amniotic fluid with an RACHAEL of 14.21cm. Placental location: The placenta is fundal-left, grade 1,with no evidence of placenta previa. Dating parameters place this at approximately 34 weeks gestational age, implying ARNULFO of June 14, 2025. BPD measures 34 weeks and 1 day HC measures 34 weeks and 3 days AC measures 34 weeks and 1 day FL measures 33 weeks and 2 days Estimated weight is 2315 gm-5 pounds, 2 ounces Fetus is at the 42nd percentile on the Hadlock scale. IMPRESSION:: Viable 3rd trimester gestation, as described above. DATA REPOSITORY:
== END 2025-05-03 02:13 ==
PROVIDERS: PCP Nurse Practitioner Family; Visit Provider Advanced Practice Midwife
DX: O24.419 Gestational diabetes mellitus in pregnancy, unspecified control (principal); Z3A.34 34 weeks gestation of pregnancy
CPT/HCPCS: 76816

== ENCOUNTER 2025-05-18 15:42 | Outpatient (REF) | payer MEDICAID, SELFPAY | END 2025-05-18 15:43 | disposition home or self-care (01) | LOC: LBN 15:42 | PROVIDERS: PCP Nurse Practitioner Family; Visit Provider Advanced Practice Midwife | DX: Z34.93 Encounter for supervision of normal pregnancy, unspecified, third trimester (principal) | CPT/HCPCS: 87081 ==

== ENCOUNTER 2025-05-24 07:17 | Outpatient (CLI) | payer MEDICAID, SELFPAY ==
[2025-05-24 08:19] LABS: HCT 32.4 % (36.0-46.0); HGB 10.7 g/dL (11.2-15.7); MCH 28.5 pg (27.0-33.0); MCHC 33.0 % (32.0-36.0); MCV 86 fL (80-95); MPV 9.7 fL (8.0-11.0); Platelet Count 343 10^3/uL (130-400); RBC 3.76 10^6/uL (3.93-5.22); RDW 13.6 % (11.7-14.6); RDW-SD 42.2 fL; WBC 7.59 10^3/uL (4.4-10.8)
[2025-05-24 08:31] VITALS: BP 113/61; PULSE 86; TEMP 36.7
[2025-05-24 08:33] VITALS: BP 113/61; PULSE 86
[2025-05-24] MEDS: IRON SUCROSE COMPLEX 200 MG in Normal Saline 100 ML 400 MG IVPB (08:35)
[2025-05-24] MEDS: Normal Saline Flush 10 ML SYR IVP (08:39)
[2025-05-24 09:02] LABS: Ferritin 10 ng/mL (8-252)
[2025-05-24 09:05] LABS: Iron 61 ug/dL (50-170); Total Iron Binding Capacity 560 ug/dL (250-450); Transferrin Sat 11 % (15-50)
[2025-05-24 09:44] VITALS: BP 113/61; PULSE 86; TEMP 36.7
--- NOTE | 2025-05-24 09:44 | W.OBNST ---
Date of service: 05/24/25 Time of Service: 09:44 NST Evaluation Reason for NST Reasons for Nonstress Test: GDM-DIET CONTROLLED and OTHER, SEE COMMENT Reason for NST Other: Iron infusion for anemia Gestational Age Gestational Age in Weeks and Days: 37 Weeks and 0Days Test and Monitor Explained Test/Monitor Explained: Test Explained and Monitor Explained Vital Signs Blood Pressure: 113/61 Pulse: 86 Temperature: 98.1 F NST Information Date on Monitor: 05/24/25 Time on Monitor: 08:19 Date off Monitor: 05/24/25 Time off Monitor: 08:53 Total Time on Monitor: 34 NST Interventions: PO Hydration NST Evaluation Patient States Movement: Present FHR Baseline: 135 Variability: Moderate 6-25 bpm Accelerations: 15x15 Decelerations: None NST Results: Reactive Note Ultrasound Done: N/A. NST Note NST Reviewed and Verified by: Jyoti Hill
== END 2025-05-24 09:00 ==
LOC: BCD 07:30 → OBS 08:15
PROVIDERS: PCP Nurse Practitioner Family; Visit Provider Advanced Practice Midwife
DX: O24.410 Gestational diabetes mellitus in pregnancy, diet controlled (principal); O99.013 Anemia complicating pregnancy, third trimester; Z3A.37 37 weeks gestation of pregnancy
CPT/HCPCS: 36415; 85027; 96365; 59025; 82728; 83540; 83550; J1756

== ENCOUNTER 2025-06-06 02:01 | Outpatient (RCR) | payer MEDICAID, SELFPAY ==
[2025-06-06 13:19] LABS: HGB 11.1 g/dL (11.2-15.7)
== END 2025-07-01 23:59 | disposition home or self-care (01) ==
LOC: INF 02:01
PROVIDERS: PCP Nurse Practitioner Family; Visit Provider Advanced Practice Midwife
DX: O99.013 Anemia complicating pregnancy, third trimester (principal)
CPT/HCPCS: 36415; 85018

== ENCOUNTER 2025-06-06 14:57 | Outpatient (CLI) | payer MEDICAID, SELFPAY ==
[2025-06-06 15:07] VITALS: BP 120/64; PULSE 74; TEMP 36.9
[2025-06-06 15:09] VITALS: BP 120/64; PULSE 74
--- NOTE | 2025-06-06 21:35 | W.OBNST ---
Date of service: 06/06/25 Time of Service: 21:35 NST Evaluation Reason for NST Reasons for Nonstress Test: OTHER, SEE COMMENT Reason for NST Other: falling down the stairs Gestational Age Gestational Age in Weeks and Days: 38 Weeks and 6Days Test and Monitor Explained Test/Monitor Explained: Test Explained, Monitor Explained and Patient Verbalized Understanding Vital Signs Blood Pressure: 120/64 Pulse: 74 Temperature: 98.4 F NST Information Date on Monitor: 06/06/25 Time on Monitor: 15:05 Date off Monitor: 06/06/25 Time off Monitor: 15:32 Total Time on Monitor: 27 NST Interventions: None Contraction Frequency: 7 min NST Evaluation Patient States Movement: Present FHR Baseline: 130 Variability: Moderate 6-25 bpm Accelerations: 15x15 Decelerations: None NST Results: Reactive Note Ultrasound Done: N/A. NST Note Note: Suzy fell down a few steps today and landed on her buttocks. She denies discomfort after fall. FHTs in office 115-120. Reactive NST. Follow up in one week at [facility]. NST Reviewed and Verified by: Rossy Medina
[2025-06-06 21:37] VITALS: BP 120/64; PULSE 74; TEMP 36.9
== END 2025-06-06 15:37 ==
LOC: BCD 14:58 → OBS 15:02
PROVIDERS: PCP Nurse Practitioner Family; Visit Provider Advanced Practice Midwife
DX: Z3A.38 38 weeks gestation of pregnancy (principal); O99.891 Other specified diseases and conditions complicating pregnancy; W10.8XXA Fall (on) (from) other stairs and steps, initial encounter
CPT/HCPCS: 59025

== ENCOUNTER 2025-06-09 04:31 | Outpatient (CLI) | payer MEDICAID, SELFPAY ==
[2025-06-09 10:27] VITALS: BP 130/60; PULSE 86
--- NOTE | 2025-06-09 10:54 | PDOC.NST_ITS ---
Date of service: 06/09/25 Time of Service: 10:55 NST Evaluation Reason for NST Reasons for Nonstress Test: OTHER, SEE COMMENT Reason for NST Other: r/o SROM Gestational Age Gestational Age in Weeks and Days: 38 Weeks and 6Days Test and Monitor Explained Test/Monitor Explained: Test Explained, Monitor Explained and Patient Verbalized Understanding Vital Signs Blood Pressure: 130/60 Pulse: 86 NST Information Date on Monitor: 06/09/25 Time on Monitor: 09:16 Date off Monitor: 06/09/25 Time off Monitor: 10:06 Total Time on Monitor: 50 NST Interventions: PO Hydration and Reposition Patient Contraction Frequency: 1-6 NST Evaluation Patient States Movement: Present FHR Baseline: 135 Variability: Moderate 6-25 bpm Accelerations: 15x15 Decelerations: None NST Results: Reactive Note Ultrasound Done: N/A. NST Note Note: Suzy is a 20-year-old at 38+6 here with suspected ROM that first occurred about 3:45 this morning. Since that time she has only had a couple of smaller gushes of fluid, but hasn't needed a pad. Yancey baby move normally last night, but is a little bit quieter this morning. No vaginal bleeding. She is GBS-negative and wanted to stay at home awhile longer to see if she could rest. Contractions started becoming more regular around 8 this morning, every 10-12 minutes. They feel like strong period cramps. She is here supported by her partner and sister. O: NAD, VSS, coping well through contractions FHTs: Baseline 135, moderate variability, +accels, no decels [place]: Q 1-6 minutes SSE: + pooling (clear fluid), + Nitrizine. SVE: Deferred. A/P # 20-year-old at 38+6 with confirmed ROM, starting to contract regularly. # Fetus: Reactive NST. # Pain: Managing well through contractions, eventually plans epidural. # Discussed options with patient to stay inpatient vs go home to await stronger contractions. If contractions still spaced by 12 hours following ROM, discussed likely recommendation for augmentation of her labor, which she is amenable to. Patient would like to go home and will call when contractions strengthen or around 15:00 if they don't. NST Reviewed and Verified by: Patricia Woodall
[2025-06-09 11:09] VITALS: BP 130/60; PULSE 86
--- NOTE | 2025-06-09 16:22 | W.OBNST ---
Date of service: 06/09/25 Time of Service: 10:30 NST Evaluation Reason for NST Reasons for Nonstress Test: MULTIPLE GESTATION and OTHER, SEE COMMENT Reason for NST Other: r/o SROM Gestational Age Gestational Age in Weeks and Days: 38 Weeks and 6Days Test and Monitor Explained Test/Monitor Explained: Test Explained, Monitor Explained and Patient Verbalized Understanding Vital Signs Blood Pressure: 130/60 Pulse: 86 NST Information Date on Monitor: 06/09/25 Time on Monitor: 09:16 Date off Monitor: 06/09/25 Time off Monitor: 10:06 Total Time on Monitor: 50 NST Interventions: PO Hydration and Reposition Patient Contraction Frequency: 1-6 NST Evaluation Patient States Movement: Present FHR Baseline: 135 Variability: Moderate 6-25 bpm Accelerations: 15x15 Decelerations: None NST Results: Reactive Note Ultrasound Done: N/A. NST Note Note: S: Suzy is a 20-year-old at 39+2 here with suspected ROM around 03:45 this morning. She is GBS-neg, had wanted to try to rest before coming in for evaluation. Fluid was initially clear, but she only had a couple of gushes initially and has had no further LOF for awhile. +FM, no VB. She started having infrequent contractions after LOF and by 08:00, they were every 10-12 mins. She is here supported by her partner and sister. O: Gen: NAD, coping well with contractions Abd: Gravid, Non-Tender, Ceph by Rachel, EFW 7 lbs 4 oz FHTs: Baseline 135, Mod variability, +accels, no decels [place]: q 1-6 mins SSE: + pooling (clear fluid), + Nitrizine; SVE: Deferred A/P: # 20-year-old with confirmed ROM, mild contractions and reactive NST. # Reviewed options with patient: Admission to the Center now, vs go home to await stronger contractions. Patient desires to go home and await stronger contractions. Will plan to return to the Center by 4 p.m., 12 hours after ROM, for labor augmentation if contractions remain spaced apart. # Fetus: Reactive NST. # Pain: Coping well currently. Eventually plans epidural. # Anticipate tonight or tomorrow. NST Reviewed and Verified by: Patricia Woodall
[2025-06-09 16:27] VITALS: BP 130/60; PULSE 86
--- NOTE | 2025-06-09 16:55 | W.OBNST ---
NST Evaluation Reason for NST Reasons for Nonstress Test: MULTIPLE GESTATION and OTHER, SEE COMMENT Reason for NST Other: r/o SROM Gestational Age Gestational Age in Weeks and Days: 38 Weeks and 6Days Test and Monitor Explained Test/Monitor Explained: Test Explained, Monitor Explained and Patient Verbalized Understanding Vital Signs Blood Pressure: 130/60 Pulse: 86 NST Information Date on Monitor: 06/09/25 Time on Monitor: 09:16 Date off Monitor: 06/09/25 Time off Monitor: 10:06 Total Time on Monitor: 50 NST Interventions: PO Hydration and Reposition Patient Contraction Frequency: 1-6 NST Evaluation Patient States Movement: Present FHR Baseline: 135 Variability: Moderate 6-25 bpm Accelerations: 15x15 Decelerations: None NST Results: Reactive
== END 2025-06-09 10:25 ==
LOC: BCD 04:31
PROVIDERS: PCP Nurse Practitioner Family; Visit Provider Advanced Practice Midwife
DX: Z3A.38 38 weeks gestation of pregnancy (principal); O47.1 False labor at or after 37 completed weeks of gestation
CPT/HCPCS: 59025

== ENCOUNTER 2025-06-09 14:06 | Inpatient (IN) | payer MEDICAID, SELFPAY ==
[2025-06-09] VITALS (77 sets, daily range): BP systolic 107–146; BP diastolic 50–101; PULSE 0–136; RESP 14; TEMP 36.7–36.9; O2SAT 93–100; BMI 29.0
[2025-06-09] MEDS: Normal Saline Flush 10 ML SYR IVP (14:15)
--- NOTE | 2025-06-09 14:17 | W.PM.OBHPL1 ---
Date of service: 06/09/25 Time of Service: 14:17 Assessment and Plan Assessment and plan (1) Uterine contractions: Status: Acute Assessment and plan: # 20-year-old @ 39+2 here with strong and frequent uterine contractions in the setting of confirmed ROM 03:45 this morning. Will defer SVE until patient is comfortable with epidural. # Admit to L&D for labor at term. # Pain: Desires epidural now. Anesthesia made aware. # Fetus: Cat 1. Plan cEFM with epidural planned. # A1GDM: Will check blood sugar on admission. # Anemia: H/H with admission. # GBS-neg. # Anticipate . (2) Amniotic fluid leaking: Status: Acute (3) Gestational diabetes mellitus: Status: Acute (4) Anemia affecting first : Status: Acute OB-HPI Labor/Delivery History of Present Illness Reason for Visit: Labor Chief Complaint: Suspected Labor. ARNULFO Calculator Estimated Delivery Date Method Current WG Current Estimate 06/14/25 Ultrasound #1 39w 2d Other Estimates 06/05/25 LMP (Certain) 40w 4d Comments: With confirmed ROM History of Present Expected Delivery Route/Plan - CNM FOB/boyfriend - Wilfred Sellers, age 58 (has a 30 yo daughter who has 2 kids age 13 & 8) BG Will want epidural (maybe early) Plans formula feeding after initial colostrum Booked IOL at 40+ wks on 06/18/25 (for GDM) GBS negative Specific Issues/Plan 1. 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 partner neg CF carrier 2. Hx heart murmur, heard at initial OB, Echo 01/30 WNL, Cardiology Consult 02/08- Dr Cornell noted murmur with neg echo 3. 5P screen+: vaping & MJ use, initial UDS +THC. Stopped MJ use (12/13/2024). 28 wk UDS-negative fentanyl+ but confirmation negative, POSC n/a 4. 1st tri asymptomatic UTI, 11/17/24, tmt w. Macrobid. RAFIQ NV 4a. UTI Recurrence - treated with Macrobid x 14 days 02/16 4b. admitted to the center for pyelonephritis 02/17, renal US 02/19 4c. Keflex 500mg TID x 11 days then daily rest of , RAFIQ 03/05/25- neg 5. Hx of insomnia trx with melatonin. 6. Chronic low back pain - referral to PT. Never went to PT. 7. anemia - taking iron QOD, Hgb 8.3 at 36 weeks, iron infusions weekly. 7a. CBC on 05/24=hgb 10.7, iron infusion on center x1 (200 mg), recheck next week __ 8. GTT 141, 3-hr GTT with 2 elevations=GDM at 30 wks, start QID testing, GDM educator referral - did not meet with Joao, she will try to reach him. 9. US 05/03 - 42%ile, RACHAEL - 14 Narrative: Suzy is a 20-year-old at 39+2 here with strong uterine contractions after confirmed ROM at the center earlier this morning. After going home earlier today, like a switch contractions started becoming stronger and closer together. she desires epidural. She is suported by her partner, sister, and mother. 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 Will try home stretches and strength building exercises Pyelonephritis affecting History of febrile urinary tract infection Right flank pain Healthy adolescent Urinary tract infection Low back pain Urinary tract infection during in first trimester E.Coli - treated with Macrobid Anxiety Filled out on patient registration form, anxiety Family History (Updated 05/03/25 @ 09:19 by Rossy Medina CNM) Mother Age: 43 Asthma Alcohol abuse Depression Anxiety Gestational diabetes Prediabetes Sister Age: 19 No problems noted. Paternal Grandfather Hypertension Grandparent unknown side or gender history of hypertension Diabetes Grandparent unknown side or gender history of diabetes Heart disease Grandparent unknown side or gender history of heart disease. Alcohol abuse Father Prediabetes Paternal Grandmother Melanoma Social History Smoking/Tobacco Use Status: Never Second Hand Exposure: No Smoking risk assessment performed?: Yes Drug use: Occasionally Substance use type: marijuana Household members: family Housing: apartment Education Level: other Details: , undecided for after that Pets and animals: Yes (2 cats) Pets and animals: cat(s) Seatbelt use: always Female Reproductive History Menstrual control method: none History History 1 Para 0 Hx # Term Pregnancies 0 Multiple births 0 Hx # Pregnancies 0 Ectopic pregnancies 0 AB induced 0 Hx Number of Living Children 0 AB spontaneous 0 Meds Allergies and Home Medications Allergies Allergy/AdvReac Type Severity Reaction Status Date / Time amoxicillin Allergy Hives Verified 06/06/25 14:32 Home Medications ?Medication ?Instructions ?Recorded ?Confirmed ?Type melatonin 5 mg tablet 5 mg PO HS PRN 11/14/19 06/06/25 History cholecalciferol (vitamin D3) 50 50 mcg PO DAILY #90 caps 12/13/24 06/06/25 Rx mcg (2,000 unit) capsule alcohol swabs 1 pad topical QID #100 ea 04/06/25 06/06/25 Rx blood sugar diagnostic (FreeStyle #100 ea 04/06/25 06/06/25 Rx Lite Strips) blood-glucose meter (FreeStyle #1 ea 04/06/25 06/06/25 Rx Lite Meter kit) lancets 28 gauge (FreeStyle #100 ea 04/06/25 06/06/25 Rx Lancets) cephalexin 500 mg capsule 500 mg PO ONCE #30 caps 05/18/25 06/06/25 Rx ferrous sulfate 325 mg (65 mg 325 mg PO DAILY 05/30/25 06/06/25 History iron) tablet Exam Physical Exam Vital signs: Pulse BP Pulse Ox 76 132/76 97 06/09/25 14:03 06/09/25 14:03 06/09/25 13:48 Vital Signs Reviewed: Yes Constitutional Constitutional: mild distress Comments: Breathing hard through contractions. Detailed Labor and Delivery Exam Dilation: 4 Effacement (%): 90 station: -2 Cervix position: mid Consistency: soft Vaca Score: Cervical Points Exam 0 1 2 3 Dilation Closed 1-2cm 3-4 cm 5-6cm Effacement 0-30% 40-50% 60-70% 80% Consistency Firm Medium Soft Station -3 -2 -1,0 +1,+2 Position Posterior Mid Anterior Amniotic Membrane Status: Ruptured Rupture Method: Spontaneous Amniotic Fluid: Clear Pooling: Positive Nitrazine: Positive Contraction Frequency(min): q 2-3 mins Contraction Duration(sec): 90 Contraction Intensity: Moderate/Strong Fetus A Heart Rate Baseline: 120 Monitor Accelerations: 15 X 15 Monitor Decelerations: None Variability: Moderate (6-25 BPM) Presentation: Cephalic Categories: Category I Est. Weight: 7 lb Date of Membrane Rupture: 06/09/25 Time of Membrane Rupture: 03:45 HEENT Exam HEENT Exam: Normal Respiratory Exam Respiratory Exam: Normal (Breathing on room air.) Cardiovascular Exam Cardiovascular Exam: Normal (Normal rate.) Abdominal Exam Abdominal Exam: Normal (Gravid, Non-Tender) Exam Exam: Normal Extremities Exam Extremities Exam: Normal Results Results Group Beta Strep: Negative Blood Type: A+ Rubella Status: Immune Varicella Immunity: Immune Risk Assessment Risk for Shoulder Dystocia Historical/Initial OB: NEGATIVE FOR: Pelvic Abnormality, Pre- BMI>30, Previous Shoulder Dystocia or Previous Macrosomia Risk for Pre-Eclampsia Date Initiated/Initials: not indicated. JK Yes, if one or more: NEGATIVE FOR: Hx Pre-E/Gest HTN, Chronic HTN, Multiple Gestation, Pre-gestational DM, Renal Disease, Systemic Lupus or APA Syndrome Yes, if 2 or more: POSITIVE FOR: Nulliparity; NEGATIVE FOR: Age>= 35 yrs, >10yr btwn pregnancies, BMI>30, ethinicty, Mother/Sister w/ Pre-E or Previous IUGR Risk for Post- Hemorrhage Initial: NEGATIVE FOR: Multiple Gestation, Previous PPH, Known Clotting Deficiency, Grand Multiparity or Anticoagulation Risks Reviewed Risks Reviewed Upon Admission: Yes
[2025-06-09 14:28] LABS: HCT 36.7 % (36.0-46.0); HGB 12.0 g/dL (11.2-15.7); MCH 28.3 pg (27.0-33.0); MCHC 32.7 % (32.0-36.0); MCV 87 fL (80-95); MPV 10.0 fL (8.0-11.0); Platelet Count 381 10^3/uL (130-400); RBC 4.24 10^6/uL (3.93-5.22); RDW 15.1 % (11.7-14.6); RDW-SD 47.2 fL; WBC 12.60 10^3/uL (4.4-10.8)
[2025-06-09] MEDS: Lactated Ringers 1,000 ML 1000 ML IV (14:30)
--- NOTE | 2025-06-09 14:30 | ANES.PREOP_ITS ---
General Info Date of Service Date Performed: 06/09/25 Height: 5 ft 2 in Weight: 72 kg Body Mass Index (BMI): 29.0 Meds Allergies and Home Medications Allergies Allergy/AdvReac Type Severity Reaction Status Date / Time amoxicillin Allergy Hives Verified 06/06/25 14:32 Home Medication ?Medication ?Instructions ?Recorded melatonin 5 mg tablet 5 mg PO HS PRN 11/14/19 cholecalciferol (vitamin D3) 50 50 mcg PO DAILY #90 ca ps 12/13/24 mcg (2,000 unit) capsule alcohol swabs 1 pad topical QID #100 ea blood sugar diagnostic (FreeStyle #100 ea 04/06/25 Lite Strips) blood-glucose meter (FreeStyle #1 ea 04/06/25 Lite Meter kit) lancets 28 gauge (FreeStyle #100 ea 04/06/25 Lancets) cephalexin 500 mg capsule 500 mg PO ONCE #30 caps 05/01 06/25 ferrous sulfate 325 mg (65 mg 325 mg PO DAILY 05/30/25 iron) tablet Current Visit Medications: Current Medications Generic Name Dose Route Start Last Admin Trade Name Freq PRN Reason Stop Dose Admin IV Miscellaneous Supplies 1 each 06/09/25 14:15 Iv Access IV DIRECTED MILLICENT Sodium Chloride 0 ml 06/09/25 14:06 Normal Saline Flush 10 Ml Syr IVP PRN PRN Sodium Chloride 0 ml 06/09/25 20:00 06/09/25 14:15 Normal Saline Flush 10 Ml Syr IVP 10 ml BID MILLICENT Administration Sodium Chloride 0 ml 06/09/25 14:06 Normal Saline 10 Ml Vial IJ DIRECTED PRN PFSH Active Problems Active Problems: Problem Status Onset Code Amniotic fluid leaking Acute O42.90 Uterine contractions Acute O47.9 Gestational diabetes mellitus Acute O24.419 Anemia affecting first Acute O99.019 Cystic fibrosis carrier Acute Z14.1 Marijuana use during Acute O99.320, F12.90 Heart murmur during Acute O26.899, R01.1 Acute Z34.90 Medical History Medical History (Updated 06/09/25 @ 14:26 by Patricia Woodall CNM) Insomnia uses melatonin shift changes for work (works days and nights) Chronic knee pain symptoms suggestive of hamstring tendonitis. Will try home stretches and strength building exercises Pyelonephritis affecting History of febrile urinary tract infection Right flank pain Healthy adolescent Urinary tract infection Low back pain Urinary tract infection during in first trimester E.Coli - treated with Macrobid Anxiety Filled out on patient registration form, anxiety Tobacco Smoking/Tobacco Use Status: Never Passive smoking exposure: Yes (Parents smoke) Second hand exposure: No Substance Use Substance use: Occasionally Substance use type: marijuana Prental History History 2 1 Para 0 Hx # Term Pregnancies 0 Multiple births 0 Hx # Pregnancies 0 Ectopic pregnancies 0 AB induced 0 Hx Number of Living Children 0 AB spontaneous 0 Vital Signs and Lab Results Vital Signs Most Recent Vital Signs in EMR: Most Recent Vital Signs Pulse BP Pulse Ox 76 132/76 97 06/09/25 14:03 06/09/25 14:03 06/09/25 13:48 Lab Results 06/09/25 14:20 Blood Type / Crossmatch: 2 Antibody Screen NEGATIVE Today Complete Blood Count: 2 WBC, (4.4-10.8) 12.60 10^3/uL H Today, 14:20 RBC, (3.93-5.22) 4.24 10^6/uL Today, 14:20 Hgb, (11.2-15.7) 12.0 g/dL Today, 14:20 Hct, (36.0-46.0) 36.7 % Today, 14:20 Plt Count, (130-400) 381 10^3/uL Today, 14:20 Anesthesia Assessment and Plan Anesthesia History Personal History: No History of Anesthesia Complications Family History: No Family History of Anesthesia Complications Exercise Tolerance Exercise Tolerance: Metabolic Equivalents>4 Cardiac & Pulmonary Exam Cardiac Exam: Known Innocent Murmur Pulmonary Exam: Clear Bilateral Breath Sounds Implantable Cardiac Device Does patient have a Pacemaker or an ICD?: No Airway Exam Known Difficult Airway: No Mallampati Class: 3 Mouth Opening: Narrow (< 3cm) Thyromental Distance: Greater than 3 cm Neck Range of Motion: Full ROM Neck Circumference: Normal Teeth Condition: Normal Dentition ASA Classification ASA Score: ASA 2 Emergency Case?: No NPO Status NPO Status: Full Stomach Status Status: Confirmed Anesthesia Plan Resuscitation Status: Full Code Anesthesia Technique: Epidural Anesthesia Airway Planned: Natural Airway Pain Management: Epidural Monitors Used: Standard Monitors Preoperative Comments:: 20 yo at 39 weeks requesting labor analgesia. Sig PMHx: murmur, LBP (sciatica, feels ok today), cannabis ECG: sinus ECHO: LVEF 65%, no sig valve issues. plt: [phone]
--- NOTE | 2025-06-09 15:18 | W.ANESNEU ---
Epidural/Spinal Catheter Date Performed: 06/09/25 Procedure Start: 14:43 Procedure Stop: 14:58 Requesting Provider: Patricia Woodall Procedure Location: Obstetrics Reason Performed: Labor Epidural Standard Monitors Applied: Blood Pressure and SpO2 Patient Position: Sitting Sedation Given (Indicate Dose Given): No Sedation given Patient Mental Status: Awake Sterility: Hand Hygiene, Surgical Cap, Surgical Mask, Sterile Gloves, Sterile Drape/Sheet and Chlorhexidine Procedure Location: L2-L3 Interspace Epidural Needle: Tuohy 17 Guage Needle Length: 3.5 Inch Needle Approach: Midline Epidural Procedure: ELIOT to Saline Used, Negative Heme and Negative CSF Flow Catheter Placed?: Catheter Placed (wire reinforced) Test Dose (Indicate Dose Given): 3ml 1.5% Lidocaine with 1:200K Epinephrine Given Loss of Resistance Depth (cm): 5 Catheter depth at skin (cm): 11 Dressing: Sorbaview Dressing Placed, Mastisol Used and Dressing reinforced with Tape Epidural Provider Bolus (Indicate Dose Given): Total Ropivacaine 0.1% with Fentanyl 2mcg/ml Given from pump. (ml) Dose:: 7 mL Additives (Indicate Dose Given ): None Infusion Medication: Medication Infusion Began Medication Infusion: Ropivacaine 0.1% with Fentanyl 2mcg/ml Maintenance Infusion Rate (ml/hour): 10 PCEA Bolus Dose (ml): 5 Block Level: N/A Paresthesia: None Ultrasound: Used to mckenna site Number of Attempts (See previous attempts in note section): 2 Procedure Tolerated: No Complications Procedure Outcome: Successful Procedure Comment:: IVF bolus had already been initiated by the CNM. Procedure and risks were discussed, and consent was obtained. Her back was US with a very good appearing space. Significant discomfort with local on skin. On first attempt was still having an abnormal amount of discomfort after waiting a reasonable amount of time for the local to set in, however she was describing her discomfort as significant pressure. A few redirections where made, but it was ultimately removed due to discomfort and miguel a contact. Additional local was given and more time was allowed to pass. On the next attempt the needle was inserted just above the first site with much better tolerance of the advancement. Performed By: Ari Montero
[2025-06-09] MEDS: Lactated Ringers 1,000 ML 125 ML IV (15:30)
[2025-06-09] MEDS: FentaNYL/ROPIvacaine 2 mcg/ml and 0.1% 200 ML CADD Cassette EP (18:27)
--- NOTE | 2025-06-09 19:20 | PGE_ITS ---
Date of service: 06/09/25 Time of Service: 19:20 Pelvic Exam Dilation: 10 Effacement (%): 100 station: 0 Vaginal Exam Presentation: Cephalic Comments: Leaking clear fluid. Contractions Monitor Mode: External Contraction Frequency(min): 2-5 Contraction Duration(sec): 45-60 Fetus A Monitor: External (US) Heart Rate Baseline: 150 Presentation: Cephalic Variability: Moderate (6-25 BPM) Categories: Category II FHR Rhythm: Regular Accelerations: 15 X 15 Decelerations: Early and Variable Recurrence: Intermittent Amniotic Membrane Status: Ruptured Assessment and Plan Assessment and plan (1) Uterine contractions: Status: Acute Assessment and plan: # 20-year-old at 39+2 here in spontaneous labor after ROM. # Labor: Patient now complete, however contractions have spaced. Will consider Pitocin titration if contractions remain suboptimal. 15 hours since ROM, no evidence of evolving IAI. Awaiting FOB to initiate pushing. Back-up MD in-house and available PRN. # Fetus: Overall Cat 1 now that pt has been changed to her right side, previously Cat 2 with intermittent variables. # Pain: Well-controlled with epidural. # Anticipate tonight. (2) Amniotic fluid leaking: Status: Acute Objective Abnormal lab results 06/09/25 Range/Units 14:20 WBC 12.60 H (4.4-10.8) 10^3/uL RDW 15.1 H (11.7-14.6) % Temp Pulse Resp BP Pulse Ox 98.3 F 108 H 14 136/69 96 06/09/25 18:00 06/09/25 19:17 06/09/25 14:03 06/09/25 19:14 06/09/25 16:49 Laboratory Results WBC 12.60 10^3/uL (4.4-10.8) H 06/09/25 14:20 RBC 4.24 10^6/uL (3.93-5.22) 06/09/25 14:20 Hgb 12.0 g/dL (11.2-15.7) 06/09/25 14:20 Hct 36.7 % (36.0-46.0) 06/09/25 14:20 MCV 87 fL (80-95) 06/09/25 14:20 MCH 28.3 pg (27.0-33.0) 06/09/25 14:20 MCHC 32.7 % (32.0-36.0) 06/09/25 14:20 RDW 15.1 % (11.7-14.6) H 06/09/25 14:20 Plt Count 381 10^3/uL (130-400) 06/09/25 14:20 MPV 10.0 fL (8.0-11.0) 06/09/25 14:20 ABO/Rh A Positive 06/09/25 14:20 Antibody Screen NEGATIVE 06/09/25 14:20 Vital Signs Reviewed: Yes Subjective Patient Reports: No new Complaints Interval history since last seen: Aiyana is doing well, was able to get a short nap. She is amenable to SVE. Sister and mom supportive at bedside, partner on his way back from taking care of thi ngs at home. Results Hemoglobin/Hematocrit: Hgb 12.0 g/dL (11.2-15.7) 06/09/25 14:20 Hct 36.7 % (36.0-46.0) 06/09/25 14:20 Abnormal Lab Findings: Abnormal Labs 06/09/25 14:20 WBC 12.60 H RDW 15.1 H
[2025-06-09] MEDS: Oxytocin/Normal Saline 30 UNITS/500 ML BAG IV (20:25)
[2025-06-09] MEDS: Oxytocin/Normal Saline 30 UNIT/500 ML BAG 95 UNITS IV (21:55)
--- NOTE | 2025-06-09 22:42 | OBVDS_ITS ---
Date of service: 06/09/25 Time of Service: 22:42 OB Labor/ Delivery Information Baby A Delivery Delivery Method: Spontaneaous Presentation: Cephalic Cephalic Position: Vertex Vertex Position: Right Occipital Anterior Breech Position: N/A Cord Description-Baby A: 3 Vessels Amniotic Fluid: Clear Quantitative Blood Loss: 75 mL Delivery Outcome: Liveborn Transferred: Remains with Mother Note: Suzy is a 20-year-old G1 now P1001 at 39+2 who arrived in spontaneous labor after confirmation of SROM earlier in the day. She was 4 cm on admission and received an epidural for pain control. She progressed to complete. She initiated pushing, however her contraction pattern was suboptimal. Pitocin was initiated to a max of 2mU/min; the frequency of her contractions improved. She then pushed effectively for the delivery of a viable female. Tight nuchal cord, unable to be reduced at the perineum. Shoulders delivered easily and baby was delivered through the cord and unwrapped prior to placement on maternal chest. The was stunned, received initial drying and stimulation on maternal chest, however continued to have poor respiratory effort. The cord was double clamped by the CNM and cut by the FOB. The was brought to the warmer where she received 1 min 15 seconds of PPV. APGARS of 6/9. Cord blood gases were collected. Arterial gases: pH 7.09 with BE 11, Venous gases: pH 7.31, BE 10. She was returned to maternal chest where she continued to transition well and received evaluation by the machine heel builder. The placenta delivered with gentle cord traction, was examined and appeared complete with 3VC. Fundus was firm with Pitocin and massage. The vagina and perineum were inspected and found to be intact. QBL 75 mL. Baby and mom remained together to recover on L&D. Providers Nurse Medical Billing Specialist: Patricia Woodall Quality Assurance Coordinator: Ari Montero Visual Lead: Lacie Ontiveros Nurse: Qing Snell Nurse: Lisset Enciso Labor/Delivery Information Number of Babies in Womb: 1 Steroids Given: None Reason Steroids Not Administered: N/A Group Beta Strep: Negative Antibiotics Administered: No Rubella Status: Immune Blood Type: A+ Varicella Immunity: Immune Born En Route: No Maternal Complications: None Shoulder Dystocia: No Stages of Labor Onset of Labor Date: 06/09/25 Onset of Labor Time: 04:00 Complete Dilatation Date: 06/09/25 Complete Dilatation Time: 19:15 Labor - Stage 1 Duration: 15 hours and 15 minutes ROM Baby A: 06/09/25 ROM Baby A: 04:00 Placenta Cultured: No Placenta Status: Delivered Baby A Gender: Female Gestational Status: Term (39-41.6 wks) weight: 6 lb 9.646 oz Score-1 Minute Interval(Baby A) Heart Rate-1 minute: 100 BPM or Greater Respiratory Effort- 1 minute: Slow Respiration/Weak Cry Muscle Tone-1 minute: Minimal Flexion/Extension Reflex Response-1 minute: Minimal Response Color-1 minute: Bluish Hands or Feet Score-5 Minute Interval(Baby A) Heart Rate- 5 minute: 100 BPM or Greater Respiratory Effort-5 minute: Spontaneous/Strong Cry Muscle Tone-5 minute: Active Movement Reflex Response-5 minute: Prompt Response Color-5 minute: Bluish Hands or Feet Procedure Procedures: Cord Blood Collection
[2025-06-10 00:27] VITALS: BP 122/57; PULSE 107
[2025-06-10] MEDS: Ibuprofen 600 MG TAB PO ×3 (00:41→16:10)
[2025-06-10] MEDS: Acetaminophen 325 MG TAB 650 MG PO ×3 (00:41→16:10)
[2025-06-10 00:57] VITALS: BP 132/60; PULSE 96
[2025-06-10 02:00] VITALS: RESP 18
[2025-06-10] MEDS: Dibucaine 1% 28 GM TUBE TP (02:00)
[2025-06-10] MEDS: Hamamelis Leaf/Glycerin 100 EACH BOX PR (02:00)
[2025-06-10 04:43] VITALS: BP 114/46; PULSE 73; RESP 18; TEMP 36.7
[2025-06-10] MEDS: Docusate Sodium 100 MG CAP PO (07:32)
[2025-06-10 07:40] VITALS: BP 123/74; PULSE 102; RESP 16; TEMP 36.8; O2SAT 96
--- NOTE | 2025-06-10 12:33 | W.ANESPOSTOP ---
Postoperative Evaluation Date, Time and Location Date Performed: 06/10/25 Time Performed: 12:33 Patient Location: Obstetrics Vital Signs Most Recent Imported Vital Signs: Most Recent Vital Signs Temp Pulse Resp BP Pulse Ox 36.8 C 102 H 16 123/74 96 06/10/25 07:40 06/10/25 07:40 06/10/25 07:40 06/10/25 07:40 06/10/25 07:40 Pain Score Most Recent Pain Score: Most Recent Pain Score Pain Level 1 06/10/25 02:00 Assessment Mental Status: Awake (Alert & Oriented to Patient Baseline) Airway and Respiratory Function: Patent airway with normal (patient baseline) respiratory exam Cardiovascular Function: Hemodynamically Stable Hydration Status: Adequately Hydrated Nausea & Vomiting: No Nausea or Vomiting Pain: Pain is tolerable per patient (back is sore. ) Peripheral Nerve Block: Patient did not receive a nerve block
--- NOTE | 2025-06-10 12:42 | W.PM.OBPNV1 ---
Date of service: 06/10/25 Time of Service: 07:30 Assessment and Plan Assessment and plan (1) care following vaginal delivery: Status: Acute Assessment and plan: #. 21-year-old , PPD #1, physically recovering well, meeting milestones. #. Difficulty with latch: Discussed with patient that a learning curve for both her and baby is very normal, especially during the first 24 hours when baby is initially sleepy. Encouraged pt to obtain the help of the nurses . #. A1GDM: Briefly reviewed plan with patient. No longer needs to monitor blood pressures. Will recommend 2-hour GTT when she is 6-12 weeks . #. -induced anemia: s/p iron transfusion and Hgb 12.0 on admission with minimal blood loss (75 mL). Will review with patient prior to discharge that she can discontinue her iron supplement. #. Plan for patient to discharge home tomorrow. (2) Gestational diabetes mellitus: Status: Acute (3) Anemia affecting first : Status: Acute Subjective Subjective Patient comments: No complaints, Pain well controlled and Tolerating diet baby status: Doing well, Supplemental feeding going well (Difficulty with latch.), Rooming in and Strong Bonding Observed; no Nursing well feeding status: Breast and formula feeding Narrative: Aiyana is a 20-year-old , PPD #1 s/p viable female Chasidy. Aiyana reports she was able to get some sleep last night, is eating/drinking and voiding normally. Her back and perineum are a little sore, and she is tired, but overall feels well and her pain is well-controlled. She report difficulty with latch, feels like she's doing something wrong. Had planned to breastfeed a short time (colostrum only), then transition to formula feeding. Family supportive at bedside. Exam Physical Exam Vital signs: Temp Pulse Resp BP Pulse Ox 98.3 F 102 H 16 123/74 96 06/10/25 07:40 06/10/25 07:40 06/10/25 07:40 06/10/25 07:40 06/10/25 07:40 Vital Signs Reviewed: Yes Constitutional Constitutional: no acute distress HEENT Exam HEENT Exam: Normal Respiratory Exam Respiratory Exam: Normal Cardiovascular Exam Cardiovascular Exam: Normal Results Hemoglobin/Hematocrit: Hgb 12.0 g/dL (11.2-15.7) 06/09/25 14:20 Hct 36.7 % (36.0-46.0) 06/09/25 14:20 Abnormal Lab Findings: Abnormal Labs 06/09/25 14:20 WBC 12.60 H RDW 15.1 H
[2025-06-10 21:00] VITALS: BP 121/70; PULSE 85; RESP 18; TEMP 37.2
[2025-06-11] MEDS: Acetaminophen 325 MG TAB 650 MG PO ×2 (00:30→07:39)
[2025-06-11] MEDS: Ibuprofen 600 MG TAB PO ×2 (00:35→07:39)
[2025-06-11] MEDS: Docusate Sodium 100 MG CAP PO (07:39)
[2025-06-11 07:45] VITALS: BP 101/55; PULSE 65; RESP 16; TEMP 36.6; O2SAT 97
--- NOTE | 2025-06-11 11:21 | DSE_ITS ---
Date of service: 06/11/25 Time of Service: 11:21 DS: Diagnosis Discharge Diagnosis (1) care following vaginal delivery: Status: Acute Asessment and Plan: Caring for baby independently. Pain is managed well with oral analgesics. Voiding without difficulty. She has been expressing colostrum and formula feeding. A - stable mother and baby , Post day 2 P - Discharge to home today. Routine post instructions. Follow up at [facility]. (2) Gestational diabetes mellitus: Status: Acute Asessment and Plan: follow up with 2-h GTT at 6 weeks post Discharge Plan Disposition Patient Disposition: Home Condition: Good Discharge Details Reason For Visit: Labor Admit Date/Time: 06/09/25 14:06 Admit Provider: Patricia Woodall Attending Provider: Patricia Woodall Primary Care Provider: Jyoti Silva Home Meds and New Rx's Prescriptions: No Action melatonin 5 mg tablet 5 mg PO HS PRN ferrous sulfate 325 mg (65 mg iron) tablet 325 mg PO DAILY cholecalciferol (vitamin D3) 50 mcg (2,000 unit) capsule 50 mcg PO DAILY Qty: 90 4RF cephalexin 500 mg capsule 500 mg PO ONCE Qty: 30 3RF (DME) blood-glucose meter [FreeStyle Lite Meter] Kit See Rx Instructions .Route Qty: 1 0RF Rx Instructions: As directed (DME) FreeStyle Lite Strips Strip See Rx Instructions .Route Qty: 100 4RF Rx Instructions: QID (DME) lancets [FreeStyle Lancets] 28 gauge misc See Rx Instructions .Route Qty: 100 4RF Rx Instructions: QID alcohol swabs Pads, Medicated 1 pad topical QID Qty: 100 4RF Discharge Instructions Stand Alone Forms: Instructions, Post Vaginal Deliver Activity:: Activity as Tolerated Equipment/Supplies:: No Equipment Needed Diet:: As Tolerated Discharge Orders Discharge Orders: Discharge Order (Routine); Ordered 06/11/25 Ordered By: Rossy Medina OB:DS Summary Summary Vaginal Delivery Method: Spontaneaous Episiotomy Description: None Laceration Description: None Laceration Extension: N/A Contraception Discussed Contraception Discussed: Yes Contraceptive Plan: Undecided, [place] Gender-Baby A: Female weight: 6 lb 9.646 oz Status at Discharge Functional status at discharge: independent ambulation Overall status at discharge: patient is back to baseline Mental Status: mental status grossly normal Speech and Movement: speech and movement normal Mood: congruent mood Affect: normal affect Exam Physical Exam Vital signs: Temp Pulse Resp BP Pulse Ox 97.9 F 65 16 101/55 L 97 06/11/25 07:45 06/11/25 07:45 06/11/25 07:45 06/11/25 07:45 06/11/25 07:45 Vital Signs Reviewed: Yes Constitutional Constitutional: no acute distress HEENT Exam HEENT Exam: Normal Respiratory Exam Respiratory Exam: Normal Cardiovascular Exam Cardiovascular Exam: Normal Fundal Exam Fundus: Below Umbilicus and Firm Rectal Exam Rectal Exam: Normal Extremities Exam Extremity Exam: Normal Skin Exam Skin Exam: Normal Psychiatric Exam Psychiatric Exam: Normal PFSH All Active Problems (Updated 06/11/25 @ 11:21 by Rossy Medina CNM) care following vaginal delivery (Acute) Gestational diabetes mellitus (Acute) Cystic fibrosis carrier (Acute) Marijuana use during (Acute) Heart murmur during (Acute) Medical History (Updated 06/11/25 @ 11:21 by Rossy Medina CNM) Amniotic fluid leaking Uterine contractions Insomnia uses melatonin shift changes for work (works days and nights) Chronic knee pain symptoms suggestive of hamstring tendonitis. Will try home stretches and strength building exercises Pyelonephritis affecting History of febrile urinary tract infection Right flank pain Healthy adolescent Urinary tract infection Low back pain Urinary tract infection during in first trimester E.Coli - treated with Macrobid Anxiety Filled out on patient registration form, anxiety Family History (Updated 05/03/25 @ 09:19 by Rossy Medina CNM) Mother Age: 43 Asthma Alcohol abuse Depression Anxiety Gestational diabetes Prediabetes Sister Age: 19 No problems noted. Paternal Grandfather Hypertension Grandparent unknown side or gender history of hypertension Diabetes Grandparent unknown side or gender history of diabetes Heart disease Grandparent unknown side or gender history of heart disease. Alcohol abuse Father Prediabetes Paternal Grandmother Melanoma Social History Smoking/Tobacco Use Status: Never Second Hand Exposure: No Smoking risk assessment performed?: Yes Alcohol Intake: former Drug use: Occasionally Substance use type: marijuana Household members: family Housing: house Education Level: other Details: Gap year , undecided for after that Pets and animals: Yes (2 cats) Pets and animals: cat(s) Seatbelt use: always Do you feel safe at home: Yes Do you feel safe in your relationship?: Yes Female Reproductive History Menstrual control method: none History History 1 Para 0 Hx # Term Pregnancies 0 Multiple births 0 Hx # Pregnancies 0 Ectopic pregnancies 0 AB induced 0 Hx Number of Living Children 0 AB spontaneous 0 DS: Data Vitals/I&O Vitals and I&O: Vital Signs Temperature 97.9 F 06/11/25 07:45 Temperature Source Oral 06/11/25 07:45 Pulse 65 06/11/25 07:45 Pulse Rhythm Regular 06/11/25 07:45 Respiratory Rate 16 06/11/25 07:45 Blood Pressure 101/55 L 06/11/25 07:45 Blood Pressure Mean 70 06/11/25 07:45 Pulse Oximetry 97 06/11/25 07:45 Oxygen Delivery Method Room Air 06/09/25 14:30 Oxygen Flow Rate 0 06/09/25 14:30 Pain Level 3 06/11/25 00:35 Intake & Output 06/10/25 06/10/25 06/11/25 11:59 23:59 11:59 Output Total 1400 / 1400 Balance -1400 / -1400 Output: Urine 1400 / 1400 Other: Urine Color Pale Comment pt voiding independently, voiding without difficulty. pt voiding independently without difficulty.
== END 2025-06-11 12:55 | disposition home or self-care (01) | DRG 806 ==
PROVIDERS: Admitting Provider Advanced Practice Midwife; PCP Nurse Practitioner Family; Visit Provider Advanced Practice Midwife
DX: O42.92 Full-term premature rupture of membranes, unspecified as to length of time between rupture and onset of labor (principal); O99.324 Drug use complicating childbirth; Z37.0 Single live birth; O99.354 Diseases of the nervous system complicating childbirth; O24.420 Gestational diabetes mellitus in childbirth, diet controlled; O99.02 Anemia complicating childbirth; Z3A.39 39 weeks gestation of pregnancy; R01.1 Cardiac murmur, unspecified; F12.90 Cannabis use, unspecified, uncomplicated; G47.00 Insomnia, unspecified; G89.29 Other chronic pain; O99.344 Other mental disorders complicating childbirth; F41.9 Anxiety disorder, unspecified; D64.89 Other specified anemias; Z14.1 Cystic fibrosis carrier
CPT/HCPCS: 85027; 86850; 86900; 86901

== ENCOUNTER 2025-07-23 07:35 | Outpatient (CLI) | payer MEDICAID, SELFPAY | END 2025-07-23 07:36 | disposition home or self-care (01) | LOC: LBO 07:35 | PROVIDERS: Advanced Practice Midwife; PCP Nurse Practitioner Family; Visit Provider Nurse Practitioner Family | DX: O24.419 Gestational diabetes mellitus in pregnancy, unspecified control (principal) | CPT/HCPCS: 36415; 82951 ==